=== PATIENT | female | born 1940 | race Caucasian/White ===

== ENCOUNTER 2020-05-04 17:24 | Inpatient (IN) | payer OTHER, BC ==
[2020-05-04 17:33] VITALS: BMI 19.8
[2020-05-04 20:04] LABS: BASO % 0.2 % (0-2.0); HEMATOCRIT 17.8 % (32.4-45.2); LYMPH % 6.4 % (8-40); MCH 31.2 pg (25.7-33.7); MCHC 32.3 g/dl (32.0-36.0); MEAN CELL VOLUME 96.9 fl (80-96); MEAN PLT VOLUME 8.9 fl (7.5-11.1); NEUT % 90.4 % (42.8-82.8); PLATELET COUNT 371 K/MM3 (134-434); RBC 1.84 M/mm3 (3.60-5.2); RDW 16.2 % (11.6-15.6); WHITE BLOOD COUNT 12.8 K/mm3 (4.0-10.0)
[2020-05-04 20:07] LABS: EPI CELLS 22 /uL (0-25.1); HYALINE CASTS 4 /uL (0-3.1); URINE APPEARANCE CLEAR; URINE BACTERIA 51 /uL (0-1359); URINE BILIRUBIN NEGATIVE (NEGATIVE); URINE COLOR YELLOW; URINE GLUCOSE (UA) 1+ (NEGATIVE); URINE KETONE TRACE (NEGATIVE); URINE LEUK ESTERASE TRACE (NEGATIVE); URINE NITRITE NEGATIVE (NEGATIVE); URINE PROTEIN 1+ (NEGATIVE); URINE RBC 21 /uL (0-23.9); URINE UROBILINOGEN 0.2 mg/dL (0.2-1.0); URINE WBC 25 /uL (0-25.8)
[2020-05-04 20:14] LABS: HEMOGLOBIN 5.8 GM/dL (10.7-15.3); INR 0.99 (0.83-1.09)
[2020-05-04 20:16] LABS: ACTIVATED PTT 24.9 SECONDS (25.2-36.5)
[2020-05-04 20:30] LABS: CHLORIDE 110 mmol/L (98-107); POTASSIUM 3.9 mmol/L (3.5-5.1); SODIUM 139 mmol/L (136-145)
[2020-05-04 20:32] LABS: CALCIUM 8.8 mg/dL (8.5-10.1)
[2020-05-04 20:33] LABS: ALBUMIN 3.9 g/dl (3.4-5.0); ANION GAP 12 MMOL/L (8-16); BLOOD UREA NITROGEN 42.9 mg/dL (7-18); CO2 17 mmol/L (21-32); GLUCOSE,RANDOM 171 mg/dL (74-106)
[2020-05-04 20:36] LABS: SGOT/AST 18 U/L (15-37); SGPT/ALT 18 U/L (13-61)
[2020-05-04 20:37] LABS: BILIRUBIN,TOTAL 0.3 mg/dL (0.2-1); TOT PROT 7.1 g/dl (6.4-8.2)
[2020-05-04 20:39] LABS: ALK PHOS 56 U/L (45-117)
[2020-05-04 21:00] LABS: LDH 209 U/L (84-246)
[2020-05-04] MEDS ORDERED: LACTATED RINGERS SOLUTION 1000 ML INFUS.BAG IV ONE (21:02)
[2020-05-04] MEDS ORDERED: PANTOPRAZOLE SODIUM 40 MG VIAL IVPUSH ONE (21:13)
[2020-05-04] MEDS ORDERED: PANTOPRAZOLE SODIUM 40 MG/100 ML BAG IVPB ONE (21:25)
[2020-05-04 23:03] LABS: RETICULOCYTES 10.07 % (0.5-1.5)
[2020-05-04] MEDS ORDERED: SODIUM CHLORIDE 1,000 ML IV SCH (23:30)
[2020-05-05 00:16] LABS: IRON SERUM 16 ug/dL (50-175); TOTAL IRON BINDING CAPACITY 450 ug/dL (250-450)
[2020-05-05 06:43] LABS: BASO % 0.2 % (0-2.0); EOS % 0.1 % (0-4.5); HEMATOCRIT 21.1 % (32.4-45.2); LYMPH % 25.1 % (8-40); MCH 30.8 pg (25.7-33.7); MCHC 32.9 g/dl (32.0-36.0); MEAN CELL VOLUME 93.7 fl (80-96); MEAN PLT VOLUME 8.6 fl (7.5-11.1); MONO % 6.6 % (3.8-10.2); PLATELET COUNT 267 K/MM3 (134-434); RBC 2.25 M/mm3 (3.60-5.2); RDW 14.9 % (11.6-15.6); WHITE BLOOD COUNT 11.7 K/mm3 (4.0-10.0)
[2020-05-05 06:47] LABS: POTASSIUM 3.6 mmol/L (3.5-5.1)
[2020-05-05 06:49] LABS: ALBUMIN 3.4 g/dl (3.4-5.0); MAGNESIUM 1.8 mg/dL (1.8-2.4)
[2020-05-05 06:50] LABS: CALCIUM 8.3 mg/dL (8.5-10.1)
[2020-05-05 06:51] LABS: BLOOD UREA NITROGEN 32.8 mg/dL (7-18)
[2020-05-05 06:52] LABS: HEMOGLOBIN 6.9 GM/dL (10.7-15.3)
[2020-05-05 06:53] LABS: CREATININE 1.4 mg/dL (0.55-1.3)
[2020-05-05 06:54] LABS: PHOSPHOROUS 3.1 mg/dL (2.5-4.9)
[2020-05-05 06:56] LABS: BILIRUBIN,TOTAL 0.6 mg/dL (0.2-1)
[2020-05-05] MEDS ORDERED: ATORVASTATIN CA 80 MG TABLET (FP) PO ONE (07:35)
[2020-05-05] MEDS: INSULIN SLIDING SCALE (NOVOLOG) 1 VIAL SQ SCH ×2 (07:40→13:02)
[2020-05-05] MEDS ORDERED: METOPROLOL TARTRATE 25 MG TABLET (FP) PO ONE (07:58)
[2020-05-05] MEDS ORDERED: METOPROLOL TARTRATE 25 MG TABLET (FP) ONE (08:16)
[2020-05-05] MEDS ORDERED: PANTOPRAZOLE SODIUM 40 MG VIAL ONE (08:17)
[2020-05-05] MEDS ORDERED: ATORVASTATIN CA 80 MG TABLET (FP) ONE (08:17)
[2020-05-05] MEDS ORDERED: PANTOPRAZOLE SODIUM 40 MG VIAL IVPUSH SCH (10:00)
[2020-05-05] MEDS ORDERED: METOPROLOL TARTRATE 25 MG TABLET (FP) PO SCH (13:00)
[2020-05-05] MEDS ORDERED: LACTATED RINGERS SOLUTION 1,000 ML/1,000 ML INFUS.BAG IV SCH (15:00)
[2020-05-05 18:32] VITALS: BP 120/52; PULSE 75; TEMP 98.1
[2020-05-06] MEDS ORDERED: ATORVASTATIN CA 80 MG TABLET (FP) PO SCH (22:00)
== END 2020-05-05 18:30 | disposition short-term general hospital (02) | DRG 377 ==
LOC: JER 17:24 → JERBED 20:44
PROVIDERS: ADMIT Internal Medicine
PROC: 30233N1 Transfusion of Nonautologous Red Blood Cells into Peripheral Vein, Percutaneous Approach (ICD-10-PCS; principal; 2020-05-04)
DX: K92.2 Gastrointestinal hemorrhage, unspecified (principal); I21.4 Non-ST elevation (NSTEMI) myocardial infarction; E87.2 Acidosis; N17.9 Acute kidney failure, unspecified; D64.9 Anemia, unspecified; I10 Essential (primary) hypertension; E78.5 Hyperlipidemia, unspecified; F41.9 Anxiety disorder, unspecified; G47.33 Obstructive sleep apnea (adult) (pediatric); D72.829 Elevated white blood cell count, unspecified; D70.9 Neutropenia, unspecified; R00.2 Palpitations; E86.0 Dehydration
CPT/HCPCS: 36415; 36430; 71045-TC-FY; 74176-TC; 76775-TC; 80053; 80061; 81003; 82272; 82550; 82607; 82728; 82746; 82962; 83540; 83550; 83605; 83615; 83721; 83735; 83880; 84100; 84443; 84484; 85025; 85045; 85379; 85610; 85730; 86140; 86850; 86900; 86901; 86922; 87040; 87086; 93005; 93010; 99285-25; C9803; P9058; U0003

== ENCOUNTER 2020-06-24 21:53 | Emergency (ER) | payer OTHER, BC ==
[2020-06-24 22:10] VITALS: BMI 19.1
[2020-06-24 22:50] LABS: BASO % 0.9 % (0-2.0); EOS % 3.1 % (0-4.5); HEMATOCRIT 26.8 % (32.4-45.2); HEMOGLOBIN 8.9 GM/dL (10.7-15.3); LYMPH % 18.2 % (8-40); MCH 29.2 pg (25.7-33.7); MCHC 33.3 g/dl (32.0-36.0); MEAN CELL VOLUME 87.8 fl (80-96); MEAN PLT VOLUME 8.2 fl (7.5-11.1); NEUT % 71.8 % (42.8-82.8); PLATELET COUNT 251 K/MM3 (134-434); RBC 3.05 M/mm3 (3.60-5.2); RDW 18.2 % (11.6-15.6); RETICULOCYTES 1.18 % (0.5-1.5); WHITE BLOOD COUNT 9.3 K/mm3 (4.0-10.0)
[2020-06-24 23:00] LABS: INR 1.02 (0.83-1.09); PROTHROMBIN TIME (PATIENT) 12.3 SEC (9.7-13.0)
[2020-06-24 23:03] LABS: ACTIVATED PTT 34.5 SECONDS (25.2-36.5)
[2020-06-24 23:08] LABS: POTASSIUM 4.3 mmol/L (3.5-5.1)
[2020-06-24 23:11] LABS: CALCIUM 8.4 mg/dL (8.5-10.1)
[2020-06-24 23:12] LABS: ALBUMIN 3.2 g/dl (3.4-5.0); BLOOD UREA NITROGEN 28.6 mg/dL (7-18)
[2020-06-24 23:14] LABS: BILIRUBIN,DIRECT 0.1 mg/dL (0.0-0.2)
[2020-06-24 23:15] LABS: CREATININE 1.3 mg/dL (0.55-1.3)
[2020-06-24 23:16] LABS: BILIRUBIN,TOTAL 0.5 mg/dL (0.2-1); TOT PROT 6.7 g/dl (6.4-8.2)
[2020-06-25 03:21] LABS: HEMATOCRIT 24.9 % (32.4-45.2); HEMOGLOBIN 8.3 GM/dL (10.7-15.3); MCH 29.3 pg (25.7-33.7); MCHC 33.4 g/dl (32.0-36.0); MEAN CELL VOLUME 87.6 fl (80-96); MEAN PLT VOLUME 8.5 fl (7.5-11.1); PLATELET COUNT 234 K/MM3 (134-434); RBC 2.84 M/mm3 (3.60-5.2); RDW 18.6 % (11.6-15.6); WHITE BLOOD COUNT 6.5 K/mm3 (4.0-10.0)
[2020-06-25 07:03] VITALS: BP 125/48; PULSE 72; TEMP 98.4
== END 2020-06-25 07:08 | disposition home or self-care (01) ==
LOC: JER 21:53
DX: R04.0 Epistaxis (principal)
CPT/HCPCS: 36415; 71045-TC-FY; 80053; 82248; 82550; 82728; 83010; 83540; 83550; 83615; 84484; 85025; 85027; 85045; 85610; 85730; 86769; 86850; 86900; 86901; 93005; 93010; 99285-25